=== PATIENT | male | born 1940 | race Caucasian/White ===

== ENCOUNTER → 2023-12-07 10:24 | Outpatient (REF) | payer MEDICARE, OTHER, SELFPAY ==
[2023-12-07 11:24] LABS: ALT (SGPT) 25 U/L (0-50); AST (SGOT) 37 U/L (17-59); Albumin 4.6 g/dl (3.5-5.0); Alkaline Phosphatase 91 U/L (38-126); Blood Urea Nitrogen 17 mg/dl (9-20); Calcium 9.9 mg/dl (8.4-10.2); Carbon Dioxide 30 mmol/L (22-30); Chloride 100 mmol/L (98-107); Glucose 281 mg/dl (70-99); HDL Cholesterol 105 mg/dl; LDL Cholesterol, Calculated 59 mg/dl; Potassium 4.7 mmol/L (3.5-5.1); Sodium 139 mmol/L (135-145); Total Bilirubin 1.2 mg/dl (0.2-1.3); Total Cholesterol 178 mg/dl (50-199); Total Protein 7.3 g/dl (6.3-8.2); Triglyceride 72 mg/dl (10-149); Very Low Density Lipoprotein 14 mg/dl (0-30); eGFR > 60.00
[2023-12-07 11:33] LABS: Microalbumin/creatinine Ratio 152.3 mg/g
[2023-12-07 12:51] LABS: Glycohemoglobin (HgbA1c) 9.5 % (4.0-5.6)
[2023-12-07 16:40] LABS: TSH Reflex To Free T4 6.96 uIU/ml (0.47-4.68)
[2023-12-07 17:16] LABS: Folate > 20.0 ng/ml (2.76-20); Vitamin B12 333 pg/ml (239-931)
[2023-12-07 17:22] LABS: Free T4 1.06 ng/dl (0.78-2.19)
== END ==
LOC: REG 10:24
PROVIDERS: ATTENDING PHYSICIAN Student in an Organized Health Care Education/Training Program
DX: R10.13 Epigastric pain (principal); R10.11 Right upper quadrant pain; E11.9 Type 2 diabetes mellitus without complications; D52.9 Folate deficiency anemia, unspecified
CPT/HCPCS: 36415; 80053; 80061; 82043; 82570; 82607; 82746; 83036; 84439; 84443

== ENCOUNTER 2024-02-03 15:11 | Emergency (ER) | payer MEDICARE, OTHER, SELFPAY ==
[2024-02-03 15:17] VITALS: BP 194/107
[2024-02-03 15:22] LABS: Glucose - Point of Care 463 mg/dl (70-99)
[2024-02-03 15:30] LABS: % Basophils 0.7 % (0-2); % Eosinophils 0.6 % (0-6); % Immature Granulocytes 0.3 % (0-0.5); % Lymphocytes 28.7 % (20.5-51.1); % Monocytes 7.5 % (1.7-9.3); % Neutrophils 62.2 % (42.2-75.2); Absolute Basophils 0.1 10^3/uL (0-0.2); Absolute Eosinophils 0.1 10^3/uL (0-0.7); Absolute Lymphocytes 2.6 10^3/uL (1.2-3.4); Absolute Monocytes 0.7 10^3/uL (0.1-0.6); Absolute Neutrophils 5.6 10^3/uL (1.4-6.5); Hemoglobin 14.6 g/dL (13.0-18.0); Mean Corp Hgb Conc. 35.6 g/dL (33.0-37.0); Mean Platelet Volume 11.7 fL (7.4-10.4); Nucleated Red Blood Cells % 0 % (-); Platelet Count 167 10^3/uL (130-400); Red Blood Cell Count 4.71 10^6/uL (4.70-6.10); Red Cell Dist. Width 12.4 % (11.5-14.5)
[2024-02-03 15:53] LABS: ALT (SGPT) 26 U/L (0-50); AST (SGOT) 41 U/L (17-59); Albumin 4.8 g/dl (3.5-5.0); Alkaline Phosphatase 115 U/L (38-126); Blood Urea Nitrogen 14 mg/dl (9-20); Calcium 10.1 mg/dl (8.4-10.2); Carbon Dioxide 29 mmol/L (22-30); Chloride 96 mmol/L (98-107); Glucose 439 mg/dl (70-99); Potassium 4.6 mmol/L (3.5-5.1); Sodium 139 mmol/L (135-145); Total Bilirubin 1.3 mg/dl (0.2-1.3); Total Protein 7.3 g/dl (6.3-8.2); eGFR > 60.00
[2024-02-03 16:29] LABS: B-Hydroxybutyrate 1.15 mmol/L (0.02-0.27)
[2024-02-03 17:50] VITALS: BP 186/131
--- NOTE | 2024-02-03 17:57 | ED.GENMED ---
History of Present Illness
General
Chief Complaint: Blood Sugar Problem
Source: patient
Exam Limitations: none
Time Seen by Provider: 02/03/24 17:48
History of Present Illness
History of Present Illness:
83-year-old male insulin-dependent diabetic presents for evaluation in referral from family doctor for elevated blood sugar. There was a miscommunication between the patient and his doctor. Last month physician told him to add metformin however he
interpreted as stopping his insulin and just taking metformin. He has been on his insulin for a month. He denies chest pain shortness of breath. He denies vomiting or nausea or abdominal pain. He states he was able to run a mile and a half this
morning. Overall he feels well.
Past History
Past History
ED Past Medical History: Cancer (Pancreatic CA) and Other (Pancreatitis); Negative Asthma, HTN, Hypercholesterolemia or NIDDM
ED Past Surgical History: Appendectomy, Tonsilectomy and Other (Eye surgery, discectomy, common bile duct stent placement in January 2006)
Social History
Tobacco: Non-smoker
Alcohol: None
Personal: Partner
Living: with family
Employment: Retired
Family History
Family History: Other (Noncontributory)
Phy Exam
Physical Exam
Physical Exam:
General: Well-appearing male no acute respiratory distress
HEENT: Normocephalic atraumatic
Heart: Regular rate and rhythm no murmurs
Lungs: Clear no wheeze
Extremities: No cyanosis or edema
Skin: Warm no rash
Course
Orders/Labs/Results
Orders:
Orders
02/03/24 15:25
B-Hydroxybutyrate Urgent
Complete Blood Count/With Diff Urgent
Comprehensive Metabolic Panel Urgent
Abnormal Lab Results
02/03/24 02/03/24
15:21 15:25
MPV 11.7 H fL
(7.4-10.4)
Absolute Monos (auto) 0.7 H 10^3/uL
(0.1-0.6)
Chloride 96 L mmol/L
(98-107)
Glucose 439 H mg/dl
(70-99)
B-Hydroxybutyrate 1.15 H mmol/L
(0.02-0.27)
POC Glucose 463 H* mg/dl
(70-99)
02/03/24 15:25
02/03/24 15:25
Vital Signs
Initial and Last Documented VS:
Initial Vital Signs
Temp Pulse Resp BP Pulse Ox
97.9 F 60 18 194/107 99
02/03/24 15:17 02/03/24 15:17 02/03/24 15:17 02/03/24 15:17 02/03/24 15:17
Last Documented Vital Signs
Temp Pulse Resp BP Pulse Ox
97.9 F 60 18 172/109 98
02/03/24 15:17 02/03/24 15:17 02/03/24 15:17 02/03/24 18:00 02/03/24 18:45
MDM/Problems Addressed
Differential Diagnosis Includes:
Patient not on insulin presents with elevated blood sugars. Serum glucose here is 439. Patient with stable vital signs. No evidence of diabetic ketoacidosis on blood work. Will hydrate. He plans on restarting his insulin when he gets home.
*Critical Care Note
Total Time (30-74mins, 75-104mins- exclusive of procedures): Not Applicable
Update Note
Update Note:
Patient was hydrated here. No indication for admission. Do not suspect DKA. Patient will be discharged he will resume his insulin as he normally would take at home.
ED Attending Note
-
Portions of this chart may have been created with voice recognition software.� Occasional wrong word or��sound alike� substitutions may have occurred due to the inherent limitations of voice recognition software.
Discharge Plan
Departure
Patient Disposition: Home (Routine Discharge)
Date of Disposition: 02/03/24
Time of Disposition: 19:49
Patient with high blood pressure during this ER visit?: No
Discharge Problem:
Hyperglycemia
Prescriptions:
No Action
Zenpep 40,000-126,000- 168,000 unit capsule,delayed release(DR/EC)
1 cap PO MEALS
tamsulosin 0.4 mg Capsule
0.4 mg PO DAILY Qty: 30 0RF
Zosyn in dextrose (iso-osm) 3.375 gram/50 mL Piggyback
3.375 g IV Q6H 28 Days Qty: 6300 0RF
Probiotic 3 billion cell capsule
3,000 mmu cells PO DAILY Qty: 30 0RF
acetaminophen 325 mg Tablet
650 mg PO Q6H PRN (Reason: pain)
magnesium hydroxide [Milk of Magnesia] 400 mg/5 mL Suspension
30 ml PO DAILY PRN (Reason: constipation)
sulfamethoxazole-trimethoprim [Bactrim DS] 800-160 mg Tablet
1 tab PO BID
insulin aspart U-100 [Novolog U-100 Insulin aspart] 100 unit/mL Solution
1 sliding scale dose SC DIRECTED
bisacodyl [Dulcolax (bisacodyl)] 10 mg Suppository
10 mg WA DAILY PRN (Reason: constipation)
Fleet Enema 19-7 gram/118 mL Enema
118 ml WA ONCE PRN (Reason: constipation)
insulin lispro 100 unit/mL Solution
9 unit SC TID
clotrimazole [Lotrimin] 1 % Cream
1 applic TOPICAL BID
amoxicillin-pot clavulanate [Augmentin] 875-125 mg Tablet
1 tab PO BID
cholecalciferol (vitamin D3) [Vitamin D3] 25 mcg (1,000 unit) Capsule
25 mcg PO DAILY
insulin glargine [Lantus Solostar U-100 Insulin] 100 unit/mL (3 mL) Insulin Pen
8 unit SC QPM
Referrals:
Chris Green DO [Family Provider] -
Activity Restrictions/Additional Instructions:
Please resume your insulin as normally scheduled. Return if worse otherwise
Interventions
Interventions:
*Risk Screen - Suicide Last Done: 02/03/24 15:17
*General Assessment Last Done: 02/03/24 15:17
*Neglect/Abuse Screening Last Done: 02/03/24 15:17
ED- Neurological Assessment Last Done: 02/03/24 17:54
Discharge Date and Time
Print Language: [place]
[2024-02-03 18:00] VITALS: BP 172/109
== END 2024-02-03 20:00 | disposition home or self-care (01) ==
LOC: EMR 15:11
PROVIDERS: EMERGENCY PHYSICIAN Emergency Medicine; FAMILY PHYSICIAN Family Medicine
DX: E11.65 Type 2 diabetes mellitus with hyperglycemia (principal); Z79.4 Long term (current) use of insulin; Z85.07 Personal history of malignant neoplasm of pancreas
CPT/HCPCS: 99283; 80053; 82010; 82962; 85025

== ENCOUNTER → 2024-05-05 11:23 | Outpatient (REF) | payer MEDICARE, OTHER, SELFPAY ==
[2024-05-05 12:14] LABS: Urine Albumin Negative (Neg - Trace); Urine Bilirubin Negative (Negative); Urine Character Clear (Clear); Urine Color Yellow; Urine Glucose Negative (Negative); Urine Ketone Negative (Negative); Urine Leukocyte Negative (Negative); Urine Nitrite Negative (Negative); Urine Occult Blood Negative (Negative); Urine Urobilinogen Negative (Neg - 1+)
[2024-05-05 12:54] LABS: ALT (SGPT) 23 U/L (0-50); AST (SGOT) 36 U/L (17-59); Albumin 4.5 g/dl (3.5-5.0); Alkaline Phosphatase 78 U/L (38-126); Blood Urea Nitrogen 14 mg/dl (9-20); Calcium 9.1 mg/dl (8.4-10.2); Carbon Dioxide 28 mmol/L (22-30); Chloride 102 mmol/L (98-107); Glucose 174 mg/dl (70-99); Potassium 4.3 mmol/L (3.5-5.1); Sodium 140 mmol/L (135-145); Total Bilirubin 0.9 mg/dl (0.2-1.3); Total Protein 7.2 g/dl (6.3-8.2); eGFR > 60.00
[2024-05-05 13:15] LABS: TSH 5.58 uIU/ml (0.47-4.68)
[2024-05-05 14:37] LABS: Glycohemoglobin (HgbA1c) 7.5 % (4.0-5.6)
[2024-05-05 15:22] LABS: Microalbumin/creatinine Ratio 189.4 mg/g
== END ==
LOC: REG 11:23
PROVIDERS: ATTENDING PHYSICIAN Family Medicine
DX: R79.89 Other specified abnormal findings of blood chemistry (principal); E11.65 Type 2 diabetes mellitus with hyperglycemia; Z79.4 Long term (current) use of insulin; E11.29 Type 2 diabetes mellitus with other diabetic kidney complication; R80.9 Proteinuria, unspecified
CPT/HCPCS: 36415; 80053; 81003; 82043; 82570; 83036; 84439; 84443

== ENCOUNTER 2024-06-01 12:05 | Emergency (ER) | payer MEDICARE, OTHER, SELFPAY ==
[2024-06-01 12:15] VITALS: BP 182/97
--- NOTE | 2024-06-01 12:20 | ED.CVA ---
ED Provider Triage
<Delphine Loza PA-C - Last Filed: 06/01/24 12:24>
-
Patient seen by provider in Triage?: Seen in Triage
Attestation: A medical screening examination has been initiated by a qualified medical provider. Based on the assessment performed at this time, it has been determined that an emergent medical condition may exist and the patient has been informed
that further medical evaluation and possible additional diagnostic testing may be needed.
HPI: 84yoM here for loss of vision in L eye on Wednesday for 15 minutes. Currently asymptomatic. No current vision symptoms, dizziness, weakness, paresthesias. Sent here from [facility] for TIA workup. Hx of IDDM.
GENERAL: Alert , in no apparent distress
EYE: No visual abnormalities.
NECK: Trachea midline
ENT: No visible abnormalities.
LUNGS: No acute respiratory distress
NEUROLOGICAL: Alert and oriented
SKIN: Skin intact. No visible changes.
MUSCULOSKELETAL: Moving extremities normally
PSYCH: Normal and appropriate interaction.
This is a medical evaluation conducted in person to initiate diagnostic evaluation and provide initial therapeutics. Please see further documentation by the treating clinician.
CBC, CMP, EKG, and CTA head/neck ordered.
History of Present Illness
<Delphine Loza PA-C - Last Filed: 06/01/24 12:24>
General
Chief Complaint: CVA/TIA Symptoms
Time Seen by Provider: 06/01/24 13:55
<Adam Kraft DO - Last Filed: 06/01/24 19:25>
General
Source: patient
Onset of Stroke Symptoms
Onset of symptoms known: Yes
Date of onset of symptoms: 05/30/24
History of Present Illness
History of Present Illness:
84-year-old male sent to the emergency room from [facility] to have a stroke workup. Patient had gone to the eye doctor because he had a 15-minute period of vision loss of the left eye. Patient states he was sitting when he suddenly
experienced a loss of vision going from the bottom to the top of his visual field. This lasted for 15 minutes then vision returned low it has been a little blurry since then. Patient denies any associated neurologic symptoms such as weakness,
numbness, speech or swallowing abnormalities. Patient does have a history of pancreatic cancer for which she had a Whipple in 2016. He has had no recurrence of visual loss since Wednesday.
Past History
<Delphine Loza PA-C - Last Filed: 06/01/24 12:24>
Past History
ED Past Medical History: Cancer (Pancreatic CA) and Other (Pancreatitis); Negative Asthma, HTN, Hypercholesterolemia or NIDDM
ED Past Surgical History: Appendectomy, Tonsilectomy and Other (Eye surgery, discectomy, common bile duct stent placement in January 2006)
Social History
Tobacco: Non-smoker
Alcohol: None
Personal: Partner
Living: with family
Employment: Retired
Family History
Family History: Other (Noncontributory)
Phy Exam
<Adam Kraft DO - Last Filed: 06/01/24 19:25>
Physical Exam
Physical Exam:
General: Awake, Alert, Oriented X3. No acute distress, very thin appears stated age
Vitals: unremarkable
Head: Atraumatic
Eyes: Pupils equal, EOMI
Throat: Airway intact, no exudates
Neck: Trachea midline
Lungs: Clear and equal b/l
Heart: Regular rate, no murmurs
Abd: Soft, Nontender, No pulsatile mass
Neuro: Cranial nerves intact, muscle strength equal bilaterally, cerebellar exam normal
Skin: Warm, dry, no rash
Extremities: pulses equal b/l, no edema
Course
<Delphine Loza PA-C - Last Filed: 06/01/24 12:24>
Orders/Labs/Results
Orders:
Orders
06/01/24 12:23
CT Head & Neck Angio W/wo IV Urgent
Comment:
Reason For Exam: Transient L eye visual loss
06/01/24 12:24
Electrocardiogram (*1) Urgent
Reason for Study: TIA/Stroke
EKG- Treatment ONCE
06/01/24 12:29
Complete Blood Count/With Diff Urgent
Erythrocyte Sed Rate Urgent
Comment: ADD ON
06/01/24 14:01
C-Reactive Protein Urgent
Comment: ADD ON
Comprehensive Metabolic Panel Urgent
06/01/24 14:16
Add On- LAB Urgent
Tests Added?: crp, sed rate
06/01/24 17:20
Clopidogrel Bisulfate [Plavix] 75 mg PO NOW STA
06/02/24 06:00
Echo 2D MMode Color/Doppler Urgent
Reason for Study: tia
Cardiology Consult: Ildefonso Corley
Comment: 150/82
Abnormal Lab Results
06/01/24 06/01/24
12:29 14:01
Absolute Monos (auto) 0.8 H 10^3/uL
(0.1-0.6)
Creatinine 0.6 L mg/dL
(0.7-1.3)
Glucose 202 H mg/dl
(70-99)
Calcium 8.2 L mg/dl
(8.4-10.2)
06/01/24 12:29
06/01/24 14:01
Vital Signs
Initial and Last Documented VS:
Initial Vital Signs
Temp Pulse Resp BP Pulse Ox
97.6 F 56 16 182/97 98
06/01/24 12:15 06/01/24 12:15 06/01/24 12:15 06/01/24 12:15 06/01/24 12:15
Last Documented Vital Signs
Temp Pulse Resp BP Pulse Ox
97.6 F 56 16 150/82 98
06/01/24 12:15 06/01/24 12:15 06/01/24 12:15 06/01/24 17:19 06/01/24 12:15
<Adam GelacioAshlee Kraft, DO - Last Filed: 06/01/24 19:25>
Orders/Labs/Results
Orders:
Orders
06/01/24 12:23
CT Head & Neck Angio W/wo IV Urgent
Comment:
Reason For Exam: Transient L eye visual loss
06/01/24 12:24
Electrocardiogram (*1) Urgent
Reason for Study: TIA/Stroke
EKG- Treatment ONCE
06/01/24 12:29
Complete Blood Count/With Diff Urgent
Erythrocyte Sed Rate Urgent
Comment: ADD ON
06/01/24 14:01
C-Reactive Protein Urgent
Comment: ADD ON
Comprehensive Metabolic Panel Urgent
06/01/24 14:16
Add On- LAB Urgent
Tests Added?: crp, sed rate
06/01/24 17:20
Clopidogrel Bisulfate [Plavix] 75 mg PO NOW STA
06/02/24 06:00
Echo 2D MMode Color/Doppler Urgent
Reason for Study: tia
Cardiology Consult: Ildefonso Corley
Comment: 150/82
Abnormal Lab Results
24 24
12:29 14:01
Absolute Monos (auto) 0.8 H 10^3/uL
(0.1-0.6)
Creatinine 0.6 L mg/dL
(0.7-1.3)
Glucose 202 H mg/dl
(70-99)
Calcium 8.2 L mg/dl
(8.4-10.2)
06/01/24 12:29
06/01/24 14:01
Vital Signs
Initial and Last Documented VS:
Initial Vital Signs
Temp Pulse Resp BP Pulse Ox
97.6 F 56 16 182/97 98
06/01/24 12:15 06/01/24 12:15 06/01/24 12:15 06/01/24 12:15 06/01/24 12:15
Last Documented Vital Signs
Temp Pulse Resp BP Pulse Ox
97.6 F 56 16 150/82 98
06/01/24 12:15 06/01/24 12:15 06/01/24 12:15 06/01/24 17:19 06/01/24 12:15
<Adam Kraft, - Last Filed: 06/01/24 19:25>
MDM/Problems Addressed
Differential Diagnosis Includes:
CVA, giant cell arteritis, transient retinal artery occlusion (retinal TIA).
MDM/Problems Addressed:
Patient sent to the emergency room for evaluation after being evaluated by his packing checker today. Physical exam here is nonfocal. CT and CTA obtained which do not show any significant abnormalities. Neurology consultation obtained. Neurology
recommended obtaining a echo and MRI in addition to the CTA. Not feasible to obtain the studies through the emergency room as they are not emergent. Patient not interested in hospitalization to facilitate the studies. He is the sole director validation of
his partner who is dementia. Patient understands that trying to arrange the studies as an outpatient will take much longer and delay identifying a reversible source of his symptoms. Patient accepts this risk. I communicated with the patient's
primary care provider Dr. Green and informed him that the patient is being discharged and will need to have a echo and MRI performed as an outpatient.
<Adam Kraft, - Last Filed: 06/01/24 19:25>
*Radiology
Radiology exam reviewed: radiology read reviewed
*Pulse Oximetry
Patient hypoxic: no
*EKG
Heart Rate: 45
Rate: bradycardiac
Rhythm: sinus
[place]: normal axis
Interval: normal interval
QRS Pattern: normal QRS
Ischemia: no ischemia
*Head Refrigeration Engineer Interpretation
Rate: bradycardiac
Interpretation: abnormal
Rhythm: sinus
*Critical Care Note
Total Time (30-74mins, 75-104mins- exclusive of procedures): Not Applicable
ED Attending Note
[place];Delphine Loza PA-C - Last Filed: 06/01/24 12:24>
-
Portions of this chart may have been created with voice recognition software.� Occasional wrong word or��sound alike� substitutions may have occurred due to the inherent limitations of voice recognition software.
Discharge Plan
Departure
Patient Disposition: Home (Routine Discharge)
Date of Disposition: 06/01/24
Time of Disposition: 17:14
Patient with high blood pressure during this ER visit?: Yes
Condition: Good
Discharge Problem:
Amaurosis fugax of left eye
Prescriptions:
New
clopidogrel [Plavix] 75 mg tablet
75 mg PO DAILY Qty: 21 0RF
No Action
Zenpep 40,000-126,000- 168,000 unit capsule,delayed release(DR/EC)
1 cap PO MEALS
tamsulosin 0.4 mg Capsule
0.4 mg PO DAILY Qty: 30 0RF
Zosyn in dextrose (iso-osm) 3.375 gram/50 mL Piggyback
3.375 g IV Q6H 28 Days Qty: 6300 0RF
Probiotic 3 billion cell capsule
3,000 mmu cells PO DAILY Qty: 30 0RF
acetaminophen 325 mg Tablet
650 mg PO Q6H PRN (Reason: pain)
magnesium hydroxide [Milk of Magnesia] 400 mg/5 mL Suspension
30 ml PO DAILY PRN (Reason: constipation)
sulfamethoxazole-trimethoprim [Bactrim DS] 800-160 mg Tablet
1 tab PO BID
insulin aspart U-100 [Novolog U-100 Insulin aspart] 100 unit/mL Solution
1 sliding scale dose SC DIRECTED
bisacodyl [Dulcolax (bisacodyl)] 10 mg Suppository
10 mg GA DAILY PRN (Reason: constipation)
Fleet Enema 19-7 gram/118 mL Enema
118 ml GA ONCE PRN (Reason: constipation)
insulin lispro 100 unit/mL Solution
9 unit SC TID
clotrimazole [Lotrimin] 1 % Cream
1 applic TOPICAL BID
amoxicillin-pot clavulanate [Augmentin] 875-125 mg Tablet
1 tab PO BID
cholecalciferol (vitamin D3) [Vitamin D3] 25 mcg (1,000 unit) Capsule
25 mcg PO DAILY
insulin glargine [Lantus Solostar U-100 Insulin] 100 unit/mL (3 mL) Insulin Pen
8 unit SC QPM
Referrals:
Chris Green DO [Family Provider] -
Activity Restrictions/Additional Instructions:
Your eye doctor sent you to the ER because you had a TIA of your eye (retinal artery). The testing we did here was okay but you also need an echocardiogram and an MRI to complete the testing. Because you were unable to stay in the hospital for
these tests you should call your primary care doctor tomorrow morning to help arrange. Our neurologist has recommended you take a medication called Plavix once a day for the next three weeks.
Interventions
Interventions:
*Risk Screen - Suicide Last Done: 06/01/24 12:20
*General Assessment Last Done: 06/01/24 12:20
ED- Fall Risk Assessment Last Done: 06/01/24 17:43
*ED COVID-19 Vaccine History Last Done: 06/01/24 12:20
*Nursing Disposition Last Done: 06/01/24 17:43
ED- Pulmonary Assessment Last Done: 06/01/24 14:12
ED- Neurological Assessment Last Done: 06/01/24 14:12
ED- Cardiac Assessment Last Done: 06/01/24 14:12
Discharge Date and Time
Discharge Date/Time: 06/01/24 17:43
Print Language: [place]
[2024-06-01 12:53] LABS: % Immature Granulocytes 0.2 % (0-0.5); % Monocytes 9.1 % (1.7-9.3); % Neutrophils 56.7 % (42.2-75.2); Absolute Basophils 0.1 10^3/uL (0-0.2); Absolute Eosinophils 0.1 10^3/uL (0-0.7); Absolute Lymphocytes 2.8 10^3/uL (1.2-3.4); Absolute Monocytes 0.8 10^3/uL (0.1-0.6); Hematocrit 43.3 % (39.0-52.0); Hemoglobin 14.3 g/dL (13.0-18.0); Mean Corpuscular Hgb 29.9 pg (27.0-31.0); Mean Corpuscular Volume 90.4 fL (80.0-94.0); Nucleated Red Blood Cells % 0 % (-); Red Blood Cell Count 4.79 10^6/uL (4.70-6.10); Red Cell Dist. Width 13.3 % (11.5-14.5); White Blood Cell Count 8.9 10^3/uL (4.8-10.8)
[2024-06-01 13:54] LABS: Platelet Count 158 10^3/uL (130-400)
[2024-06-01 14:21] LABS: ALT (SGPT) 38 U/L (0-50); AST (SGOT) 50 U/L (17-59); Alkaline Phosphatase 72 U/L (38-126); Blood Urea Nitrogen 9 mg/dl (9-20); Calcium 8.2 mg/dl (8.4-10.2); Carbon Dioxide 27 mmol/L (22-30); Chloride 105 mmol/L (98-107); Glucose 202 mg/dl (70-99); Potassium 3.8 mmol/L (3.5-5.1); Sodium 140 mmol/L (135-145); Total Bilirubin 0.9 mg/dl (0.2-1.3); Total Protein 6.5 g/dl (6.3-8.2); eGFR > 60.00
[2024-06-01 14:36] LABS: C-Reactive Protein < 5.00 mg/L (0.0-10.00)
--- NOTE | 2024-06-01 14:41 | CON.NEURO ---
Consultation
Order
Date of Consultation: 06/01/24
Requesting Provider: Adam Kraft DO
Reason for Consult: visual loss
Neurology Consultation Note.
HPI: This is an 84-year-old RH man who presented to [facility] on 06/01/2024 for an evaluation and management of transient visual symptoms. According to the patient he developed painless visual loss in the left eye lasting for 15-20
minutes on that occurred on 05/30/2024. He describes the vision loss as light and translucent, similar to looking through a shade, with no images. The episode started at the bottom, working its way up like a shade. The vision returned in the same
manner, just in reverse. The patient denies any associated headaches and has no prior history of similar episodes.No reports of motor, sensory, speech or balance changes.
Ms. presented was seen by Nathanael Jimenez MD today. Review of the note was notable for no disc edema, absence of macular hemorrhages, no polyps or detached
ER VS: 182/97, 56, afebrile.
EKG: Sinus bradycardia at 45,QTc Int : 394 ms
PDMP:none
Labs: Glucose�202, normal sodium, calcium�8.2, normal albumin., CRP,
CT head wo contrast-Decreased attenuation in the periventricular deep white matter bilaterally compatible with senescent and/or small vessel related ischemic changes. The brainstem and posterior fossa structures demonstrate no significant focal
abnormalities.
CTA head and neck�no hemodynamically significant stenosis.
PMH: Posterior vitreous detachment OU, history of right retinal detachment, pancreaticobiliary primary adenocarcinoma, DM, melanoma, BPH, chronic pancreatitis, h/o intrahepatic abscess, vitamin D deficiency, OA
PSH: R scleral buckle, bilateral cataract surgery, Whipple procedure(2015), left L4-L5 discectomy (2013), left inguinal hernia repair, appendectomy, tonsillectomy,
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
FH: Prostate cancer.
All:NKDA
ROS:Constitutional: Negative. Negative for chills, fever and unexpected weight change.
HENT: Negative for ear pain, hearing loss, tinnitus and trouble swallowing.
Eyes: Positive for transient left visual loss.
Respiratory: Negative for cough, choking and shortness of breath.
Cardiovascular: Negative for chest pain, palpitations and leg swelling.
Gastrointestinal: Negative for abdominal pain and vomiting.
Endocrine: Positive for cold intolerance
Musculoskeletal: Negative for back pain, gait problem, neck pain and neck stiffness.
Skin: Negative for rash.
Allergic/Immunologic: Negative. Negative for immunocompromised state.
Neurological: Negative for dizziness, tremors, seizures, speech difficulty, numbness and headaches.
Psychiatric/Behavioral: Negative for behavioral problems, confusion and hallucinations.
General: Well developed. In no acute distress.
Cardio: Regular rate and rhythm without murmur. Extremities are without cyanosis or edema.
Neuro:
Mental Status: Alert, oriented to person, place, and date. Normal attention and recall. Good fund of knowledge. Follows complex requests across the midline. Comprehension, naming, and repetition intact. Immediate recall 3/3.
Cranial Nerves: Pupils are equally round, surgical. EOMs full. Visual de leon full to confrontation. No ptosis. No nystagmus. V1-V3 intact to light touch and pinprick bilaterally, symmetric. Face symmetric. Impaired hearing AU. The palate
elevated well. SCMs and traps 5/5. Tongue midline. No dysarthria.
Motor: Normal bulk and tone. No pronator or arm drift. Strength 5/5 throughout. No clonus.
Reflexes: trace+ throughout the upper extremities and 0 knees. Plantar responses flexor bilaterally.
Sensory: Normal vibration at the ankles
Coordination: No dysmetria or tremor.
Gait: deferred
Assessment and Plan:
I. Left amaurosis fugax
II. Hypertensive urgency
III. Bradycardia
-Continue Telemetry monitoring.
-Cautious lowering of BP by approximately 15 % during the first 24 hours is SBP >220 mmHg or diastolic blood pressure >120 mmHg;
-Restart antihypertensive medications during if BP>140/90 mmHg who are neurologically stable in 24 to 48 hours after stroke onset;
-TTE with bubble studies
-Start ASA 81 mg QD indefinitely.
-Brain MRI without shirley
-Plavix 75 mg QD for 21 days.
-Please check LDL.
-PT.
-DVT prophylaxis.
I personally reviewed all radiology and labs along with past medical records pertinent to current medical problems. Total time spent in patient care is 60 minutes.
Thank you for allowing us to participate in the care of this patient. We will continue to follow. Please do not hesitate to contact us with any questions or concerns.
Subjective/Objective
Subjective Data
Date of Service: June 01, 2024
Objective Data
Vital Signs
Temp Pulse Resp BP Pulse Ox
36.4 C 56 16 182/97 98
06/01/24 12:15 06/01/24 12:15 06/01/24 12:15 06/01/24 12:15 06/01/24 12:15
Lab Results
06/01/24 12:29
06/01/24 14:01
Sodium 140 mmol/L (135-145) 06/01/24 14:01
Potassium 3.8 mmol/L (3.5-5.1) 06/01/24 14:01
BUN 9 mg/dl (9-20) 06/01/24 14:01
Glucose 202 mg/dl (70-99) H 06/01/24 14:01
Calcium 8.2 mg/dl (8.4-10.2) L 06/01/24 14:01
Patient Allergies
No Known Allergies Allergy (Verified 06/01/24 12:18)
Medications
-
Home Medications
�Medication �Instructions �Recorded
mbhklc-xfsdlotl-ppckwsl 1 cap PO MEALS Gastrointestinal 08/17/22
40,000-126,000-168,000 unit issue
capsule, delay rel (Zenpep)
lactobacillus combination no.4 3 3,000 mmu cells PO DAILY #30 caps 08/24/22
billion cell capsule (Probiotic)
piperacillin-tazobactam 3.375 3.375 g (56.25 mL) IV Q6H 4 weeks 08/24/22
gram/50 mL dextrose(iso-os) IV #6,300 mL
piggyback (Zosyn)
tamsulosin 0.4 mg capsule 0.4 mg PO DAILY #30 caps 08/24/22
acetaminophen 325 mg tablet 650 mg PO Q6H PRN pain 09/15/22
amoxicillin 875 mg-potassium 1 tab PO BID 09/15/22
clavulanate 125 mg tablet
bisacodyl 10 mg rectal suppository 10 mg KS DAILY PRN constipation 09/15/22
(Dulcolax (bisacodyl))
cholecalciferol (vitamin D3) 25 25 mcg PO DAILY 09/15/22
mcg (1,000 unit) capsule (Vitamin
D3)
clotrimazole 1 % topical cream 1 applic topical BID 09/15/22
insulin aspart U-100 100 unit/mL 1 sliding scale dose SC DIRECTED 09/15/22
subcutaneous solution (Novolog
U-100 Insulin aspart)
insulin glargine 100 unit/mL (3 8 unit SC QPM 09/15/22
mL) subcutaneous pen (Lantus
Solostar U-100 Insulin)
insulin lispro 100 unit/mL 9 unit SC TID 09/15/22
subcutaneous solution
magnesium hydroxide 400 mg/5 mL 30 ml PO DAILY PRN constipation 09/15/22
oral suspension (Milk of Magnesia)
sodium phosphates 19 gram-7 118 ml KS ONCE PRN constipation 09/15/22
gram/118 mL enema (Fleet Enema)
sulfamethoxazole 800 1 tab PO BID 09/15/22
mg-trimethoprim 160 mg tablet
(Bactrim DS)
Vital Signs and Labs
-
Vital Signs and Labs:
Vital Signs
Temp Pulse Resp BP Pulse Ox
36.4 C 56 16 182/97 98
06/01/24 12:15 06/01/24 12:15 06/01/24 12:15 06/01/24 12:15 06/01/24 12:15
Lab Results
06/01/24 12:29
06/01/24 14:01
Sodium 140 mmol/L (135-145) 06/01/24 14:01
Potassium 3.8 mmol/L (3.5-5.1) 06/01/24 14:01
BUN 9 mg/dl (9-20) 06/01/24 14:01
Glucose 202 mg/dl (70-99) H 06/01/24 14:01
Calcium 8.2 mg/dl (8.4-10.2) L 06/01/24 14:01
Home Medications
-
Home Medications
yajpwj-nuwvfhio-oukxwuv 40,000-126,000-168,000 unit capsule, delay rel (Zenpep) 1 cap PO MEALS Gastrointestinal issue 08/17/22
lactobacillus combination no.4 3 billion cell capsule (Probiotic) 3,000 mmu cells PO DAILY #30 caps 08/24/22
piperacillin-tazobactam 3.375 gram/50 mL dextrose(iso-os) IV piggyback (Zosyn) 3.375 g (56.25 mL) IV Q6H 4 weeks #6,300 mL 08/24/22
tamsulosin 0.4 mg capsule 0.4 mg PO DAILY #30 caps 08/24/22
acetaminophen 325 mg tablet 650 mg PO Q6H PRN pain 09/15/22
amoxicillin 875 mg-potassium clavulanate 125 mg tablet 1 tab PO BID 09/15/22
bisacodyl 10 mg rectal suppository (Dulcolax (bisacodyl)) 10 mg KS DAILY PRN constipation 09/15/22
cholecalciferol (vitamin D3) 25 mcg (1,000 unit) capsule (Vitamin D3) 25 mcg PO DAILY 09/15/22
clotrimazole 1 % topical cream 1 applic topical BID 09/15/22
insulin aspart U-100 100 unit/mL subcutaneous solution (Novolog U-100 Insulin aspart) 1 sliding scale dose SC DIRECTED 09/15/22
insulin glargine 100 unit/mL (3 mL) subcutaneous pen (Lantus Solostar U-100 Insulin) 8 unit SC QPM 09/15/22
insulin lispro 100 unit/mL subcutaneous solution 9 unit SC TID 09/15/22
magnesium hydroxide 400 mg/5 mL oral suspension (Milk of Magnesia) 30 ml PO DAILY PRN constipation 09/15/22
sodium phosphates 19 gram-7 gram/118 mL enema (Fleet Enema) 118 ml KS ONCE PRN constipation 09/15/22
sulfamethoxazole 800 mg-trimethoprim 160 mg tablet (Bactrim DS) 1 tab PO BID 09/15/22
[2024-06-01 15:29] LABS: Erythrocyte Sed Rate 8 mm/hour (0-20)
[2024-06-01 17:19] VITALS: BP 150/82
[2024-06-01] MEDS: PLAVIX 75 MG PO (17:25)
== END 2024-06-01 17:43 | disposition home or self-care (01) ==
LOC: EMR 12:05
PROVIDERS: Physician Assistant; EMERGENCY PHYSICIAN Emergency Medicine; FAMILY PHYSICIAN Family Medicine; OTHER PHYSICIAN Psychiatry & Neurology Neurology
DX: G45.3 Amaurosis fugax (principal); H54.62 Unqualified visual loss, left eye, normal vision right eye; I16.0 Hypertensive urgency; E11.9 Type 2 diabetes mellitus without complications; N40.0 Benign prostatic hyperplasia without lower urinary tract symptoms; E55.9 Vitamin D deficiency, unspecified; M19.90 Unspecified osteoarthritis, unspecified site; Z79.02 Long term (current) use of antithrombotics/antiplatelets; Z85.07 Personal history of malignant neoplasm of pancreas; Z85.820 Personal history of malignant melanoma of skin
CPT/HCPCS: 99284; 70496; 70498; 80053; 85025; 85652; 86140; 93005; Q9967

== ENCOUNTER → 2024-06-21 06:49 | Outpatient (REF) | payer MEDICARE, OTHER, SELFPAY | LOC: PAVMRI 06:49 | PROVIDERS: ATTENDING PHYSICIAN Family Medicine | DX: H53.122 Transient visual loss, left eye (principal) | CPT/HCPCS: 70551 ==

== ENCOUNTER → 2024-06-26 08:44 | Outpatient (REF) | payer MEDICARE, OTHER, SELFPAY ==
--- NOTE | 2024-06-21 12:47 | PN.DIAED02 ---
Addendum entered by Agnieszka Pulliam RN 06/23/24 16:37:
Boris called back to confirm he takes Metformin 500 mg QD. He also saw his PCP who started him on anti-hypertensive medications on 06-21-24.
Original Note:
Referral
DSME Class Series Code: [id number]
Referred For: Diabetes Self-Management Training, Medical Nutrition Therapy, Self-Blood Glucose Monitoring, Long-Term Complication Instruction, Accute Complication Instruction, Continuous Glucose Monitoring, Medication management, Care Coordination,
Disease Management
PHI Release Authorization Form Signed: Yes
Patient Problems:
Current Active Problems
Problem Status Onset
Type 2 diabetes mellitus without complications
Demographic
(1) Type 2 diabetes mellitus without complications
Status: Acute
Qualifiers:
Diabetes mellitus custodial insulin use: with custodial use Qualified Code(s): E11.9 - Type 2 diabetes mellitus without complications; Z79.4 - nursing home (current) use of insulin
Code(s): E11.9 - Type 2 diabetes mellitus without complications
Patient's primary language-: Jordanian
Education: Some college
Occupation: Retired
- Social
Living Arrangements: Self & spouse, Family
- Learning Methods
Preferred Method: Reading
Barriers to Learning: None
Glycemic Control
- Blood Glucose Monitoring Assessment
Date: 05/05/24 (FBS: 174 mg/dL)
Blood glucose monitoring at home: Yes
Monitor Brands: Accu-Chek (AccuChek Guide)
Frequency: 3x per day
Patient uses Alternate Site Testing: No (Freestyle maliha 3 plus started in the office)
- Hyperglycemia Assessment
Experiences Hyperglycemia: No
- Hypoglycemia Assessment
Patient carries glucose source: No
Patient experiences hypoglycemia: Yes (reviwed rule of 15 and carrying glucose at all times)
Frequency: 1-3x per week
Patient has required treatment by others: No
History of Hypoglycemia Unawareness: No
- Blood Glucose Monitoring Results
Source: self-report
- Hemoglobin A1c
Date: 05/05/24
A1C Percentage (%): 7.5
Medical History of Diabetes
Family Diabetes History: Unknown
Previous Diabetes Education: No
Previous visit with Dietitian: No
Complications/Comorbidity/Specialist: Autoimmune, Heart Disease ('mini-stroke' on 05-31-24. loss of vision. Started on Plavix (dose unkown) and ASA 81 mg), Pancreatic cancer (dx and treated 7 years ago)
Current Home Medication
- Insulin Management
Patient adjusts own insulin dosages: No
Patient has access to glucagon: No
- Insulin Types
Humalog Lantus
Insulin Injection Site: Abdomen
Administration Type: SoloSTAR (6 units before meals of Humalog and 8 units of Lantus at bedtime)
Measures
- Anthropometrics
Height: 5 ft 7 in
Actual Weight: 136 lb
- Blood Pressure / Pulse
Blood pressure: 194/103 (Repeat: 201/109 & 180/106: MD notified and recc Boris to go to the ER. Pt refused and will see MD at 5 pm this eveing in the office)
Pulse: 62
- Diabetes Management
Medical Management for Diabetes: Complete physical exam (05/31/2024), Dental exam (wears dentures, has not seen a dentis in > 3 years, recc he make an appt for gum health), Dilated eye exam (05/31/2024), Foot exam (discussed doing daily foot exams
and making appt with manager appointment), Pneumonia vaccination (did not take flu or pneumonia vaccine as he became sick in the past after injections)
Self-Care
- Tobacco Usage
Do you now, or have you ever smoked?: Never smoked
- Alcohol & Drugs Usage
Drinks Alcohol: No
- Meals & Dining
Meals & Dining: Patient skips meals: Yes, Food Intolerance / Allergy: No, Cultural / Jewish Dietary Needs: No
Dining Out Frequency: Daily
- Physical Activity
Physical Limitation: Yes (recent stroke)
Patient participates in physical Activity: Yes (routinely runs 3- 4 days a week for 3 miles)
Activity Types: Running (3 miles typically 3-4 days/wk), Strength training (lifts weights)
- Patient-Self Assessment
Diabetes Knowledge: Good
Feelings About Diabetes: Acceptance
Importance of Health: Extremely
Stress Level: Low
Barriers to Diabetes Management: Nothing
Depression Survey Score: 2
- Diabetes Identification
Carries Diabetes Identification: No (discussed importance due to hypoglycemia)
Diabetes Identification Information Provided: Yes
Care Plan
- Education Needs
Patient Education Needs: Diabetes disease process, Chronic complications, Acute complications, Medication, Monitoring, Physical activity, Psychosocial Adjustment, Nutritional management, Goal setting & problem solving
Recommended Diabetes Training Program based on assessment: Outpatient Diabetes Education Program
- Plan of Care
Plan of Care:
Boris presented with his partner Franc for his initial DSME assessment for the June, course. He had an MRI this morning related to a mini-stroke he had on 05-31-24. He was started on Plavix and ASA 81 mg at that time. Boris denied having a
history of hypertension and is not currently on any medications. His blood pressures in the office were elevated at 194/103 (pulse)62 and then repeated with a result of 201/109. He denied feeling any headaches, visual issues but stated he felt
shaky. A blood sugar was taken and it was 206 mg/dL. I stated we would repeat the blood pressure again within the next half hour. A repeat and final blood pressure was 180/106 mg/dL (pulse 64). I called Dr. Green's office and spoke with Beryl
to discuss my concerns with his elevated readings. Iris, the Triage MA called back and spoke to Boris with me in the office and requested he go to the ER per Dr. Green. Boris stated he could not go as he had previous engagements today he
could not cancel. He requested an office visit and Iris stated he could come in for 5:20 pm, however it was recommended he go to the ER. Boris stated he would attend the appt this evening and I reinforced for him to call 911 or go to the ER with
any visual or speech changes or headaches. Boris verbalized understanding of plan.
Boris was diagnosed with diabetes 7 years ago after treatment for pancreatic cancer and a Whipple procedure. He was started on oral medications and was then transitioned to insulin while admitted to for an abdominal infection 3 years ago. He is
currently on Lantus 8 units daily and 6 units of Humalog pre meal. Dr. Lucas has been titrating the doses lower due to recent hypoglycemia. I reviewed recognition and treatment of hypoglycemia and the importance of carrying glusoe at all times.
I also reviewed the importance of medical identification and for monitoring his bg levels more frequently and before and after exercise. Prior to his recent stroke, Boris was running 3 miles 3-5 times per week. We discussed the benefits of exercise
and the need to monitor numbers to prevent lows. Boris brought in his freestyle 3 plus sensor and asked for assistance with getting it started. I helped him download the Libratoneyle maliha 3 patricia to his phone and he was able to put on the sensor with
assistance. Boris will be following up directly with Dr. Green and will contact the office to if he as any concerns prior to the June DSME session.
--- NOTE | 2024-06-21 14:47 | PN.DIAED04 ---
Education Record
- Education Record
Class Attended: Other (Initial DSME assessment)
DSME Class Series Code: [id number]
Instructor: Nurse Practitioner (KEMI Santos)
Pre-Program Knowledge: Demonstrates competency
Pre-Test Score (%): 85
Goals
- Goal 1
Being Active: Exercise more often (Start running daily for 3 miles)
Goals To Be Evaluated: Exercise more often
- Goal 2
Healthy Eating: Make better food choices
Goals To Be Evaluated: Make better food choices
- Goal 3
Monitoring: Monitor more often (wear the [place] 3 plus sensor)
Goals To Be Evaluated: Monitor more often
--- NOTE | 2024-06-27 13:51 | PN.DIAED14 ---
This is to notify you that your patient with diabetes, FILOMENA MTZ ( 1940), has enrolled in our diabetes self-management classes that are being held at [facility].
These classes will include an introduction to diabetes, diet, medication, exercise and prevention of complications. At the end of our class series, you will receive a report of your patient's participation and progress for your records.
Please contact me at the Diabetes Center, , if there is any particular information regarding your patient that might be helpful to me.
Sincerely,
Darwin MCMULLEN-GIL,[facility]
--- NOTE | 2024-06-27 13:51 | PN.DIAED04 ---
Addendum entered and electronically signed by Mae Costa 06/28/24 11:50:
Outpatient Diabetes Education Program:
Class 1 (120 minutes)
Describe the diabetes disease process and treatment options
Diabetes management
Develop personal strategies to promote health and behavior change
Integrate psychosocial adjustment for daily living
Monitor blood glucose and other parameters. Interpret and use the results for self-management decision making
Prevent, detect, and treat acute complications
Original Note:
Education Record
- Education Record
Class Attended: Class 1
DSME Class Series Code: [id number]
Instructor: Nurse Practitioner (KEMI Santos)
Class Length (mins): 120
Post-Class 1 Test Score (%): 94
== END ==
LOC: DES 08:44
PROVIDERS: ATTENDING PHYSICIAN Family Medicine
DX: E11.65 Type 2 diabetes mellitus with hyperglycemia (principal)
CPT/HCPCS: 99078

== ENCOUNTER → 2024-07-03 13:04 | Outpatient (REF) | payer MEDICARE, OTHER, SELFPAY | LOC: DES 13:04 | PROVIDERS: ATTENDING PHYSICIAN Family Medicine | DX: E11.65 Type 2 diabetes mellitus with hyperglycemia (principal) | CPT/HCPCS: 99078 ==

== ENCOUNTER → 2024-07-10 09:07 | Outpatient (REF) | payer MEDICARE, OTHER, SELFPAY | LOC: DES 09:07 | PROVIDERS: ATTENDING PHYSICIAN Family Medicine | DX: E11.65 Type 2 diabetes mellitus with hyperglycemia (principal) | CPT/HCPCS: 99078 ==

== ENCOUNTER → 2024-07-11 15:35 | Outpatient (REF) | payer MEDICARE, OTHER, SELFPAY | LOC: RCS 15:35 | PROVIDERS: ATTENDING PHYSICIAN Family Medicine | DX: H53.122 Transient visual loss, left eye (principal) | CPT/HCPCS: 93306 ==

== ENCOUNTER → 2024-07-17 10:00 | Outpatient (REF) | payer MEDICARE, OTHER, SELFPAY ==
--- NOTE | 2024-07-18 10:30 | PN.DIAED04 ---
Education Record
- Education Record
Class Attended: Class 4
DSME Class Series Code: [id number]
Instructor: Nurse Practitioner (KEMI Santos)
Class Curriculum:
Outpatient Diabetes Education Program:
Class 4 (120 minutes)
Develop personal strategies to promote health and behavior change
Incorporate physical activity into lifestyle
Utilize medications safety for maximum therapeutic effectiveness
Understand different medication/insulin mechanism of action
Preparing for travel
Class Length (mins): 120
Post-Class 4 Test Score (%): 100
== END ==
LOC: DES 10:00
PROVIDERS: ATTENDING PHYSICIAN Family Medicine
DX: E11.65 Type 2 diabetes mellitus with hyperglycemia (principal)
CPT/HCPCS: 99078

== ENCOUNTER → 2025-02-13 11:58 | Outpatient (REF) | payer MEDICARE, OTHER, SELFPAY ==
[2025-02-13 13:42] LABS: ALT (SGPT) 25 U/L (0-50); AST (SGOT) 35 U/L (17-59); Albumin 4.5 g/dl (3.5-5.0); Alkaline Phosphatase 72 U/L (38-126); Blood Urea Nitrogen 18 mg/dl (9-20); Calcium 9.2 mg/dl (8.4-10.2); Carbon Dioxide 27 mmol/L (22-30); Chloride 105 mmol/L (98-107); Glucose 101 mg/dl (70-99); HDL Cholesterol 94 mg/dl; LDL Cholesterol, Calculated 52 mg/dl; Potassium 4.2 mmol/L (3.5-5.1); Sodium 139 mmol/L (135-145); Total Protein 7.0 g/dl (6.3-8.2); Very Low Density Lipoprotein 11 mg/dl (0-30); eGFR > 60.00
[2025-02-13 13:45] LABS: Microalb - Urine Creatinine 59.800 mg/dl
[2025-02-13 13:50] LABS: Microalbumin, Random Urine 6.2 mg/dl (0.6-1.7)
[2025-02-13 14:09] LABS: TSH 8.10 uIU/ml (0.47-4.68)
[2025-02-13 14:12] LABS: Glycohemoglobin (HgbA1c) 6.6 % (4.0-5.6)
[2025-02-15 18:51] LABS: Thyroglobulin Antibodies <1.5 IU/mL (0.0-4.0)
== END ==
LOC: OLABPV 11:58
PROVIDERS: ATTENDING PHYSICIAN Internal Medicine Endocrinology, Diabetes & Metabolism; FAMILY PHYSICIAN Family Medicine
DX: Z09 Encounter for follow-up examination after completed treatment for conditions other than malignant neoplasm (principal); H53.122 Transient visual loss, left eye; G45.3 Amaurosis fugax; E11.9 Type 2 diabetes mellitus without complications; R80.9 Proteinuria, unspecified; E03.8 Other specified hypothyroidism; E11.65 Type 2 diabetes mellitus with hyperglycemia
CPT/HCPCS: 36415; 80053; 80061; 82043; 82570; 83036; 84439; 84443; 86376; 86800

== ENCOUNTER → 2025-03-19 08:55 | Outpatient (REF) | payer MEDICARE, OTHER, SELFPAY ==
--- NOTE | 2025-03-20 09:00 | PN.DIAED04 ---
Education Record
- Education Record
Class Attended: Class 5
DSME Class Series Code: [id number]
Instructor: Registered Nurse (Ada Gates RN)
Class Curriculum:
Outpatient Diabetes Education Program:
Class 5 (120 minutes)
Prevent, detect, and treat acute complications
Prevent, detect, and treat chronic complications through risk reduction
Develop personal strategies to address psychosocial issues and concerns
Development of diabetes self-management support plan
Letter to physician with DSMS plan attached sent
Class Length (mins): 120
Post-Program Knowledge: Demonstrates competency
Post-Test Score (%): 95
Post-Program Assessment
- Post-Program Assessment
Actual Weight: 137 lb 6.4 oz
Blood pressure: 183/88
Post-Program Depression Survey Score: 0
Reviewing Previous Goals?: Yes
Pre-Program Depression Survey Score: 2
- Goals 1 Evaluation
Goals To Be Evaluated: Exercise more often
- Goals 2 Evaluation
Goals To Be Evaluated: Make better food choices
- Goals 3 Evaluation
Goals To Be Evaluated: Monitor more often
--- NOTE | 2025-03-20 09:01 | PN.DIAED16 ---
This is to notify you that your patient with diabetes, FILOMENA MTZ ( 1940), has attended the entire series of Diabetes Self-Management Education Classes.
Class 1 (120 minutes): Diabetes Overview - monitoring, stress/psychosocial adjustment, support, goal setting
Class 2 (120 minutes): Meal Planning - serving sizes, menu plans
Class 3 (120 minutes): Introduction to Carbohydrate Counting, Analyzing Food Labels
Class 4 (120 minutes): Medication, Exercise and Activity
Class 5 (120 minutes): Sick Day Management, Strategies to Reduce Complications, Problem Solving, Resources
The following behavioral goals were identified:
Exercise more often
Make better food choices
Monitor more often
A follow-up call will be made within three to six months to evaluate attainment of these goals and to check post-program Hemoglobin A1c and overall progress. All class participants are encouraged to contact me if I can be any further assistance in
learning how to manage their diabetes.
Sincerely,
Darwin MCMULLEN-GIL,[facility]
== END ==
LOC: DES 08:55
PROVIDERS: ATTENDING PHYSICIAN Family Medicine
DX: E11.65 Type 2 diabetes mellitus with hyperglycemia (principal)
CPT/HCPCS: 99078

== ENCOUNTER → 2025-06-05 09:31 | Outpatient (REF) | payer MEDICARE, OTHER, SELFPAY ==
[2025-06-05 11:17] LABS: Blood Urea Nitrogen 12 mg/dl (9-20); Calcium 9.2 mg/dl (8.4-10.2); Carbon Dioxide 26 mmol/L (22-30); Chloride 104 mmol/L (98-107); Glucose 117 mg/dl (70-99); Potassium 3.8 mmol/L (3.5-5.1); Sodium 137 mmol/L (135-145); eGFR > 60.00
== END ==
LOC: OLABPV 09:31
PROVIDERS: ATTENDING PHYSICIAN Family Medicine
DX: Z01.818 Encounter for other preprocedural examination (principal)
CPT/HCPCS: 36415; 80048